=== PATIENT | male | born 1960 | race Caucasian/White ===

== ENCOUNTER 2016-12-24 19:56 | Emergency (ER) | payer BC ==
--- NOTE | 2016-12-24 21:03 | ED Physician Documentation ---
PD HPI OPHTHO - Stated complaint Stated Complaint: EYE INJURY - Chief complaint Chief Complaint: Laceration - History obtained from History obtained from: Patient - History of Present Illness Timing - onset: Enter time (19:15), Today Timing - details: Abrupt onset Pain level now: 1 Location: Right Associated symptoms: Swelling (supraorbital), Decreased vision. No: Tearing, Discharge, FB sensation, Headache Contributing factors: Blunt trauma, Wears glasses (reading only). No: Wears contacts Similar symptoms before: Has not had sx before Recently seen: Not recently seen - Additional information Additional information: was taking out the garbage tonight and the bungee cord he was trying to use on the lid of the garbage snapped loose, striking him on the right side of his forehead and his right eye. has mild pain right supraorbit but denies eye pain and denies right eye FB sensation. His chief complaint is sudden onset decreased right eye vision (can only make out shapes) Review of Systems Eyes: reports: Decreased vision. denies: Photophobia, Discharge Skin: reports: Abrasion (s) (right forehead and right eyebrow) Musculoskeletal: denies: Neck pain Neurologic: reports: Head injury. denies: Focal weakness, Numbness, Headache, LOC PD PAST MEDICAL HISTORY - Past Medical History Past Medical History: Yes Cardiovascular: High cholesterol Respiratory: None Neuro: None Endocrine/Autoimmune: None GI: None : None HEENT: None Psych: None Musculoskeletal: None Derm: None - Past Surgical History Past Surgical History: Yes General: Hiatal hernia repair HEENT: Other - Present Medications Home Medications: Ambulatory Orders Medication Instructions Recorded Confirmed Ezetimibe [Zetia] 1 tab PO DAILY 12/24/16 12/24/16 - Allergies Allergies/Adverse Reactions: Allergies Allergy/AdvReac Type Severity Reaction Status Date / Time No Known Drug Allergies Allergy Verified 12/24/16 20:05 - Social History Does the pt smoke?: No Smoking Status: Never smoker Does the pt drink ETOH?: No Does the pt have substance abuse?: No - Immunizations Immunizations are current?: Yes - POLST Patient has POLST: No PD ED PE NORMAL - Vitals Vital signs reviewed: Yes - General General: Alert and oriented X 3, No acute distress, Well developed/nourished - HEENT HEENT: PERRL, EOMI PD ED PE EXPANDED - HEENT HEENT: Other (mild swelling and mild tenderness to palpation right supraorbital ridge without crepitus or bony step-off) HEENT Visual: 1 - abrasion 2 - abrasion - GCS Eye Opening: Spontaneous Motor: Obeys Commands Verbal: Oriented Total: 15 Results - Vitals Vitals: Vital Signs - 24 hr 12/24/16 12/24/16 12/25/16 19:59 23:26 00:35 Temperature 36.8 C Heart Rate 77 74 68 Respiratory 18 16 14 Rate Blood Pressure 132/80 H 133/74 H 119/68 O2 Saturation 99 96 97 Oxygen O2 Source Room air PD MEDICAL DECISION MAKING - ED course Complexity details: re-evaluated patient, considered differential, d/w patient ED course: patient's initial (triage) visual acuity was 20/20 left but only able to discern shapes with right eye. Shortly after arrival, while sitting and resting on the stretcher in ED, his right eye vision markedly improved and on retest of visual acuity, left eye remains 20/20, right is now 20/25. Slit lamp exam reveals hyphema, with cells in anterior chamber but minimal layering (1-2 mm). The anterior chamber appears clear when grossly examined ( without slit lamp). Fluorescein staining of right eye reveals no uptake when examined with wood's lamp. IOP (measured with tonopen) is 12 (six successive readings, all of which were within 10-14 range and averaged to 12). Patient had no right eye pain or FB sensation during ED stay. On panophthalmoscopic exam, the retina was adequately visualized and appeared normal; I did not visualize findings suggestive of retinal tear or detachment There is no on-call ophthalmology at [facility]. I attempted to contact Dr. Hernández, but he is not search optimization analyst and thus not available. I then recommended to patient that I contact ophthalmology in [place] (Drs. Chi and Juan), but patient lives on [address] [facility] and works at [employer], would prefer f/u closer to there. I contacted ED physician at [facility], Dr. Feldman; unfortunately, she says there is also no on-call ophthalmology at her hospital and typically [facility] ophthal[facility] is consulted. Patient requests I contact [facility] on-call ophthalmology. In an effort to expedite his care, I contacted [facility] ([facility]). Unfortunately, they apparently do not take any call and thus were unavailable. I then contacted on-call ophthalmology at [facility]. I was able to speak with Dr. Buchanan who recommends no medications at this time (such as cycloplegics), and discharge home with expeditious f/u. He provided office's phone number ([phone]) for patient to call in the morning to arrange for immediate follow-up (ideally, later today, 12/25). I explained all of this to the patient, who expresses both understanding and interest in following through on this plan. I suspect his poor right eye vision that improved so markedly and rapidly is likely due to settling of the hyphema with rest, with possibly contribution of traumatic iritis. Departure - Departure Disposition: 01 Home, Self Care Clinical Impression: Hyphema Condition: Good Instructions: ED Eye Injury Hyphema Comments: You need to follow up with ophthalmology. Consider following up with Dr. Miguel Buchanan ([facility]; I discussed your case with him [facility]). Call the office at . Discharge Date/Time: 12/25/16 00:35
[2016-12-24] MEDS ORDERED: BACITRACIN OINT TOP STA (21:07)
[2016-12-24] MEDS ORDERED: BACITRACIN OINT TOP ONE (21:11)
[2016-12-24] MEDS ORDERED: PROPARACAINE 0.5% OPHTH DROPS 15 ML ONE (23:30)
[2016-12-25 00:44] VITALS: BP 119/68
== END 2016-12-25 00:35 | disposition home or self-care (01) ==
LOC: ED 19:56
DX: H21.01 Hyphema, right eye (principal); H54.7 Unspecified visual loss
CPT/HCPCS: 99283; 99284; A9270; J3490